=== PATIENT | female | born 1950 | race Caucasian/White ===

== ENCOUNTER 2019-04-14 07:55 | Inpatient (IN) | payer OTHER ==
[2019-04-02 09:05] LABS: URINE BILIRUBIN NEGATIVE (Negative); URINE BLOOD NEGATIVE (Negative); URINE CLARITY CLEAR; URINE COLOR YELLOW; URINE GLUCOSE-RANDOM* NEGATIVE (Negative); URINE KETONES NEGATIVE (Negative); URINE NITRITE-REFLEX NEGATIVE (Negative); URINE PROTEIN (DIPSTICK) NEGATIVE (Negative); URINE SPECIFIC GRAVITY 1.015 (1.005-1.035); URINE UROBILINOGEN 0.2 E.U./dl (0.2-1.0)
[2019-04-02 09:07] LABS: URINE LEUKOCYTES-REFLEX 1+ (Negative)
[2019-04-02 09:08] LABS: HEMATOCRIT 35.2 % (37.0-47.0); HEMOGLOBIN 11.4 gm/dL (12.0-15.0); MCH 28.8 pg (26.0-34.0); MCHC 32.3 g/dL (28.0-37.0); MCV 89.1 fL (80.0-100.0); RBC 3.96 mil/uL (4.20-5.00); RDW 14.1 % (10.5-14.5); WBC 4.7 thou/uL (4.0-11.0)
[2019-04-02 09:11] LABS: ALBUMIN 3.5 g/dL (3.4-5.0); CALCIUM 9.4 mg/dL (8.5-10.1); CREATININE 0.8 mg/dL (0.6-1.0); POTASSIUM 4.6 mmol/L (3.5-5.1)
[2019-04-02 09:14] LABS: SQUAMOUS 0-3 Few /LPF (0-3)
[2019-04-02 09:15] LABS: BACTERIA-REFLEX 1-9 Few /HPF (None Seen); CASTS None Seen /LPF (None Seen); CRYSTALS None Seen /LPF (None Seen); URINE RBC None Seen /HPF (0-2); URINE WBC-REFLEX 0-5 Rare /HPF (0-5)
[2019-04-02 09:16] LABS: PROTIME 9.3 Seconds (9.3-11.4)
[~2019-04-14] VITALS: Ht 162.6 cm; Wt 85.7 kg
[~2019-04-14 07:55] MED LIST: AMITRIPTYLINE H10 M1 PO; APAP650 PO; ARAVA20 MG PO; ASPIR 8181 M1 PO; ASPIR 8181 MG PO; CALCIUM 500 +1 EAC4 PO; CALCIUM 600 +1 EAC1 PO; DILTIAZEM 24HR240 M1 PO; DILTIAZEM ER180 M2 PO; FISH OIL 1,001000 M2 PO; FUROSEMIDE 20 M20 M1 PO; HYDROCHLOROTHIA25 M2 PO; HYDROXYCHLOROQ200 M1 PO; KLOR-CON 1010 MEQ PO; LASIX 20 MG TAB20 MG PO; LEXAPRO 10 MG T10 M1 PO; LIALDA1.2 GM PO; LIPITOR10 MG PO; LISINOPRIL10 MG PO; MINOCYCLINE 5050 M1 PO; MINOCYCLINE PO; MURO-128 5% OPH15 M1 OP; PERCOCET 10-321 EACH PO; SENOKOT-S1 TA1 PO; VITAMIN D1000 UNI1 PO; VITAMIN D325 MC3 PO; XARELTO10 MG PO; ZANTAC 150MG T150 M1 PO
[2019-04-14 09:46] VITALS: BP 155/83
[2019-04-14 14:00] VITALS: BP 142/72
[2019-04-14 15:00] VITALS: BP 132/70
[2019-04-14 16:05] VITALS: BP 124/68
[2019-04-14 16:31] VITALS: BP 124/68
[2019-04-14 18:45] LABS: HEMATOCRIT 36.6 % (37.0-47.0); HEMOGLOBIN 11.7 gm/dL (12.0-15.0); MCH 28.9 pg (26.0-34.0); MCHC 31.9 g/dL (28.0-37.0); MCV 90.7 fL (80.0-100.0); RBC 4.03 mil/uL (4.20-5.00); RDW 14.7 % (10.5-14.5); WBC 7.1 thou/uL (4.0-11.0)
[2019-04-14 18:48] LABS: CALCIUM 9.6 mg/dL (8.5-10.1); CREATININE 0.8 mg/dL (0.6-1.0); POTASSIUM 5.4 mmol/L (3.5-5.1)
[2019-04-14 20:00] VITALS: BP 130/67
[2019-04-15] VITALS (7 sets, daily range): BP systolic 102–141; BP diastolic 65–82
--- NOTE | 2019-04-15 03:28 | NUR ---
1900 ASSUMED CARE OF PT AFTER BEDSIDE REPORT, PT IN BED WITH FAMILY AT BEDSIDE. 1999 BASELINE ASSESSMENT COMPLETED. PT WITH SENSATION EQUAL TO BILAT TOES, STATES THE FEELING IS COMING BACK WITH MINIMAL PAIN, CAP REFILL TO rle <2 SEC, ICE IN PLACE TO r kNEE, DRESSING AND TAVARES WRAP C/D/I, SMALL AMOUNT OF SANGUINOUS DTRAINAGE IN HEMOVAC, WILL CONTINUE WITH HOURLY ROUNDING, PT IS UP TO BEDSIDE COMMODE WITH NO PROBLEMS.
[2019-04-15 06:35] LABS: MCH 29.6 pg (26.0-34.0); MCHC 33.1 g/dL (28.0-37.0); MCV 89.3 fL (80.0-100.0); RBC 2.92 mil/uL (4.20-5.00); RDW 14.3 % (10.5-14.5); WBC 10.4 thou/uL (4.0-11.0)
[2019-04-15 06:50] LABS: HEMOGLOBIN 8.6 gm/dL (12.0-15.0)
--- NOTE | 2019-04-15 07:37 | O ---
[facility] [place] [address] OPERATIVE REPORT Name: CHAPO SHUKLA Room #: 438-P ADM IN M.R.#: [id number] Admission: 04/14/19 Attend Phys: Demar Torres MD Discharge: Date of : 48 Report #: [id number] THIS REPORT FOR: cc: Demar Tamez,Demar Miller MD ~ CC: Demar Tamez DATE OF SERVICE: 04/14/2019 PREOPERATIVE DIAGNOSIS: End-stage degenerative arthritis, right knee, with valgus malalignment. POSTOPERATIVE DIAGNOSIS: End-stage degenerative arthritis, right knee, with valgus malalignment. PROCEDURE: Right total knee arthroplasty. SURGEON: Demar Torres MD INDICATIONS: This slender, active and independent 69-year-old female has both rheumatoid and degenerative arthritis with progressive damage in both knees. She underwent left total knee replacement several years ago with good result. She now has moderate valgus malalignment of the right knee with significant 3-compartment degenerative change. She has decided to go ahead with right total knee arthroplasty at this time. DESCRIPTION OF PROCEDURE: The patient was taken to the operating room where she was placed under general anesthesia. Prophylactic intravenous antibiotics were administered. The right lower extremity was meticulously prepped and draped. A thigh tourniquet was applied and inflated to 300 mmHg. An anterior longitudinal skin incision was made and carried through the medial retinaculum and the patella reflected laterally. Marked degenerative change with all 3 compartments was noted and there was moderate valgus malalignment. There was a slight flexion contracture. The Hernandez and Nephew knee system was utilized. Intramedullary guides were used on both the femur and the tibia. The femur was cut in 5 degrees of valgus, which seemed to correct the significant preoperative valgus malalignment. The tibia was cut perpendicular to the long axis of the bone. The femur seemed best suited for a size 4 femoral component. The tibia was best suited for a size 3 tibial component. A trial reduction was performed and a 10 mm polyethylene insert fit nicely. This resulted in full knee extension and good range of motion with good correction of her preoperative valgus malalignment. The patellar surface was resected and a 35 mm patellar button fit nicely with appropriate anchor holes. The trial components were removed. The intramedullary canal was closed with a bone block on both the [address] [address] OPERATIVE REPORT Name: CHAPO SHUKLA Room #: 438-P [facility] IN M.R.#: [id number] Admission: 04/14/19 Attend Phys: Demar Torres MD Discharge: Date of : 48 Report #: [id number] femoral and tibial sides. The surfaces were thoroughly irrigated and dried. Methyl methacrylate cement was then mixed and injected into the porous surface of the proximal tibia. The Hernandez and Nephew size 3 right Kierra II. Nonporous baseplate was then inserted. This was seated nicely. All excess cement was removed from around its margin. A size 10 mm Legion cruciate retaining polyethylene liner was then inserted. This was snapped into place and seated nicely and appeared to be secure. A right size 4 cruciate retaining Legion porous femoral component was inserted on the distal femur. A small amount of cement was used at the distal anchor holes, which were slightly osteopenic. This component also seated nicely and appeared to be secure. The patellar component was cemented into place using a 35 mm Kierra II patellar button. This was cemented into place using appropriate anchor holes. All excess cement was removed from around its margin. Once the cement had hardened, range of motion, alignment and stability were assessed and felt to be satisfactory. The patellar tracks nicely. The knee demonstrates full knee extension and flexion beyond 135 degrees. At this point, the tourniquet was deflated after a total tourniquet time of 44 minutes. Good hemostasis was confirmed. The entire wound was copiously irrigated. A single Hemovac was left in the wound exiting through a separate stab incision. The fascia was closed with #1 Vicryl. The subcutaneous tissues were closed with 0 Monocryl. The skin was closed with skin dali. A sterile dressing was applied. The patient was awakened and returned to the recovery room in good condition. <ELECTRONICALLY SIGNED> By: Demar Torres MD 04/15/19 0737 [id number] Demar Torres MD /nt
--- NOTE | 2019-04-15 14:04 | NUR ---
PT ADMITTED RELATED TO S/P R TKR. CM REVIEWED CHART AND SPOKE WITH CARE TEAM. CM MET WITH PT AT BEDSIDE THIS DAY. PT IS A&O X4. CM ROLE INTRODCUED. PT INDICATED SHE LIVES IN A HOUSE WITH HER SPOUSE WITH 1 STEP TO ENTER AND NO STEPS INSIDE. PT INDICATED SHE HAS A FWW FOR USE UPON DC. PT INDICATED SHE HAS A $40.00 PER TREATMENT COPAY FOR OP THERAPY SO SHE HAS REQUESTED TO HAVE HH INITIALLY. REFERRAL SENT TO [facility] FOR HH PT UPON DC. CM TO FOLLOW INDICATED WITH DC PLANNING.
--- NOTE | 2019-04-15 14:12 | NUR ---
Pt had a very good day. D/Cd hemovac. Small blood spot on dressing. Marked to monitor further drainage. Jayashree drain and dressing are dry and intact.Worked with PT 3 times today. Needs 1 person assist to restroom. Very independent. walked her around unit. Says knee feels better when walking. Currently icing knee. Hopes to go home tomorrow.
--- NOTE | 2019-04-15 15:20 | NUR ---
FAXED REFERRAL TO [facility] HH SPOKE WITH INTAKE THEY ARE OON WITH INSURANCE. FAXED REFERRAL TO [facility] HH SPOKE WITH NOE IN INTAKE SHE RECEIVED REFERRAL AND CAN ACCEPT. ANTICIPATE DC SUNDAY. DP TO FOLLOW.
--- NOTE | 2019-04-15 15:24 | NUR ---
I have reviewed and concur with student documentation.
--- NOTE | 2019-04-15 18:45 | NUR ---
PT CARE ASSUMED AT 0700. A&Ox4. PT IS POST OP DAY 1 FROM A R. KNEE. PT PAIN IS WELL CONTROLLED WITH PAIN MEDICATION. HEMOVAC WAS DC'D TODAY WITH 200CC OUTPUT. PT HAS BEEN UP WITH PT TWICE TODAY AND HAS TOLERATED THIS WELL. FALL PROTOCOLL IN PLACE. CALL LIGHT IN REACH. SCD'S AND DELFINO HOSE IN PLACE. PT IS UP WITH A [facility] AND A WALKER.
--- NOTE | 2019-04-16 05:16 | NUR ---
Assumed pt care at 1900. Pt is A/OX4,pleasant. VSS. Up with AX1,GB/RW. At shift change IV on left hand noted to be bleeding and stinging upon flushing. New IV reinserted on LAC with one attempt and pt medicated with Morphine as ordered with partial relief reported. [place] administered PRN with complete relief reported. Pt encouraged to voice needs as needed. Spouse at the bedside for the night. Fall precautions implemented,will continue to monitor pt.
[2019-04-16 05:37] LABS: ABSOLUTE NEUTROPHILS 7.7 thou/uL (1.4-8.2); BASOPHILS 0.2 % (0.0-2.0); EOSINOPHILS 0.2 % (0.0-3.0); HEMATOCRIT 23.5 % (37.0-47.0); HEMOGLOBIN 7.6 gm/dL (12.0-15.0); LYMPHOCYTES 16.8 % (24.0-44.0); MCH 28.9 pg (26.0-34.0); MCHC 32.5 g/dL (28.0-37.0); MCV 88.9 fL (80.0-100.0); MONOCYTES 9.7 % (1.0-8.0); PLATELET COUNT 209 thou/uL (150-400); POLYS 73.1 % (36.0-66.0); RBC 2.65 mil/uL (4.20-5.00); RDW 14.3 % (10.5-14.5); WBC 10.6 thou/uL (4.0-11.0)
[2019-04-16 06:06] LABS: CREATININE 0.8 mg/dL (0.6-1.0); MAGNESIUM 2.1 mg/dL (1.8-2.4); POTASSIUM 4.9 mmol/L (3.5-5.1)
[2019-04-16 09:00] VITALS: BP 119/70
--- NOTE | 2019-04-16 13:41 | NUR ---
SW reviewed chart and spoke with nursing and attending physician. Pt was transferred to [facility] from and is progressing towards goals for discharge. Plan is for pt to discharge home with [facility] when pt is medically stable for discharge. SW is following to assist as needed with discharge planning.
[2019-04-16 17:12] VITALS: BP 122/68
--- NOTE | 2019-04-16 17:46 | NUR ---
PT IS AOX4, VSS, PAIN CONTROLLED WITH ORAL PAIN ANALGESIC. PT REPORTS PAIN IS 3/10. PT IS WORKING WELL WITH PHYSICAL THERAPY. PT TOLERATING DIET WELL, IV IS SL ON L AC. AT BEDSIDE FOR SUPPORT. PT TRANSFERS TO [facility] WITH WALKER/ STANDBY ASSISTANCE. CALL LIGHT/PERSONAL ITEMS IN REACH. WILL CONTINUE TO MONITOR.
[2019-04-16 20:28] VITALS: BP 117/64
--- NOTE | 2019-04-17 04:45 | NUR ---
Assumed pt care at 1900. A/OX4, VSS. C/o pain to right knee especially with movement 5/10 medicated with [place] with relief reported. Up with AX1,RW/GB to bathroom. ALFREDO dsg in place on right knee C/D/I. Fall precautions in place,pt calls appropriately. Will continue to monitor pt.
[2019-04-17 06:00] LABS: HEMATOCRIT 22.2 % (37.0-47.0); HEMOGLOBIN 7.3 gm/dL (12.0-15.0); MCH 29.4 pg (26.0-34.0); MCHC 33.1 g/dL (28.0-37.0); MCV 88.7 fL (80.0-100.0); RBC 2.5 mil/uL (4.20-5.00); RDW 14.4 % (10.5-14.5); WBC 7.5 thou/uL (4.0-11.0)
[2019-04-17 06:27] LABS: ALBUMIN 2.7 g/dL (3.4-5.0); CALCIUM 8.6 mg/dL (8.5-10.1); CREATININE 0.7 mg/dL (0.6-1.0); PHOSPHORUS 3.8 mg/dL (2.5-4.9); POTASSIUM 4.5 mmol/L (3.5-5.1)
[2019-04-17 07:48] VITALS: BP 131/72
[2019-04-17 08:26] VITALS: BP 131/72
--- NOTE | 2019-04-17 11:24 | NUR ---
PT IS AOX4, VSS, PAIN CONTROLLED WITH ORAL ANALGESIC. PT REPORTS FEELING BETTER TODAY. PT IS WORKING WITH WALKER AND SB ASSIST. PT USES ICE PACKS TO KEEP SWELLING DOWN IN R KNEE. PT RECEIVED DISCHARGE INSTRUCTIONS TO GO HOME WITH . IV REMOVED, PT VERBALIZED UNDERSTANDING OF DC INSTRUCTIONS. VOLUNTEER CALLED TO TRANSPORT TO CAR PER WC.
--- NOTE | 2019-04-17 13:42 | NUR ---
DISCHARGE HOME HEALTH ORDERS COMPLETED AND FAXED TO [facility] FOR [facility]. CALL PLACED TO [facility] LIA[facility] TO NOTIFY. [facility] TO FACILITATE PATIENTS HH NEEDS.
== END 2019-04-17 11:37 | disposition home health service (06) | DRG 470 ==
LOC: TBA 07:55 → PRE 08:08 → 4S 14:17 → 4N 04-15 18:51
PROVIDERS: Hospitalist; Internal Medicine; Nurse Practitioner; ADMIT Orthopaedic Surgery
PROC: 0SRC0J9 Replacement of Right Knee Joint with Synthetic Substitute, Cemented, Open Approach (ICD-10-PCS; principal; 2019-04-14)
DX: M17.11 Unilateral primary osteoarthritis, right knee (principal); D62 Acute posthemorrhagic anemia; I10 Essential (primary) hypertension; F41.9 Anxiety disorder, unspecified; E78.5 Hyperlipidemia, unspecified; M06.9 Rheumatoid arthritis, unspecified; Z88.0 Allergy status to penicillin; Z88.2 Allergy status to sulfonamides; Z88.8 Allergy status to other drugs, medicaments and biological substances; Z79.899 Other long term (current) drug therapy
CPT/HCPCS: 10091; 10195; 50010; 50101; 50415; 50954; 51130; 51225; 51412; 53364; 56525; 57095; 57104; 57180; 62110; 62900; 64039; 70005